=== PATIENT | female | born 1985 | race Caucasian/White ===

== ENCOUNTER 2018-01-16 02:16 | Emergency (ER) | payer OTHER ==
[~2018-01-16] VITALS: Ht 167.6 cm; Wt 117.9 kg
[2018-01-16] MEDS ORDERED: BENZ2 PO (03:16)
[2018-01-16] MEDS ORDERED: ZIPR20 PO (03:16)
[2018-01-16] MEDS ORDERED: Bactrim 400-801 EACH PO (03:48)
== END 2018-01-16 04:04 | disposition home or self-care (01) ==
LOC: ER 02:16
DX: N76.4 Abscess of vulva (principal); F31.9 Bipolar disorder, unspecified; F17.210 Nicotine dependence, cigarettes, uncomplicated; Z79.899 Other long term (current) drug therapy
CPT/HCPCS: 56405; 87070; 87075; 87205; 99283